=== PATIENT | male | born 1935 | race Caucasian/White ===

== ENCOUNTER 2024-11-19 07:41 | Emergency (ER) | payer MEDICARE, OTHER, SELFPAY ==
[2024-11-19 07:51] VITALS: BP 136/80; BP 137/73; PULSE 61; PULSE 65; RESP 18; TEMP 36.1; O2SAT 98; O2SAT 99; BMI 33.8
--- NOTE | 2024-11-19 07:58 | PC.NURSE ---
very small wound right foot. bleeding controlled now w/o dressing.
--- OUTSIDE RECORDS SUMMARY | 2024-11-19 08:40 | XMS_ITS ---
Author Name [facility] Organization Unknown History of Medication Use Medication Directions Dispensed Refills Start Date End Date Stat losartan (COZAAR) tablet 25 mg Take 0.5 tablets (12.5 mg total) by mouth. 06/06/2024 active celecoxib (CeleBREX) 200 MG capsule Take 1 capsule (200 mg total) by mouth daily. 06/06/2024 active furosemide (LASIX) 40 MG tablet TAKE 1 TABLET BY MOUTH DAILY, MAY TAKE AN EXTRA 1/2 TAB NEEDED FOR LEG SWELLING 06/06/2024 active spironolactone (ALDACTONE) tablet 25 mg Take 0.5 tablets (12.5 mg total) by mouth daily. 06/06/2024 active acetaminophen (TYLENOL EXTRA STRENGTH) 500 MG tablet Take 1 tablet (500 mg total) by mouth every 8 (eight) hours as needed. 06/06/2024 active Xarelto 20 MG TABS tablet Take 1 tablet (20 mg total) by mouth daily. 06/06/2024 active carvedilol (COREG) 12.5 MG tablet Take 1 tablet (12.5 mg total) by mouth 2 (two) times a day. 06/06/2024 active atorvastatin (LIPITOR) tablet 20 mg Take 1 tablet (20 mg total) by mouth daily. 06/06/2024 active Problems Problem Status Onset Date Problem Type Date of Resolution Source Ataxia active EncounterDiagnosisAct CTTHNEMG Gait abnormality active EncounterDiagnosisAct CTTHNEMG Vitamin D deficiency, unspecified active EncounterDiagnosisAct CTTHNE MG Dizziness active EncounterDiagnosisAct CTTHNEMG
--- NOTE | 2024-11-19 09:06 | ED_ITS ---
HPI - Wound/Laceration General Chief Complaint: Wound/Laceration Stated Complaint: FOOT LAC Time Seen by Provider: 11/19/24 09:01 Source: patient, family and RN notes reviewed Mode of arrival: ambulatory Limitations: no limitations History of Present Illness ED Provider: Josefina Craig PA-C HPI narrative: 88 y/o M, hx of afib on lor who presents to the ER via EMS due to bleeding varicose vein. Pt reports that while he was putting on his sock he accidentally knicked a scab on his right foot. He states that the area started to bleed. EMS arrived to scene and applied pressure. he is feeling well, no current complaints. No dizziness, lightheadedness, chest pain or SOB. He states that the area bled last week as well. No other complaints or concerns at this time. Onset (ago): minute(s) Extremity Location: right: foot Context: accidental Associated symptoms: none Related Data Allergies Allergy/AdvReac Type Severity Reaction Status Date / Time No Known Allergies Allergy Verified 11/19/24 07:53 Review of Systems 2 Review of Systems: Yes all other systems are reviewed and are negative [facility] Social History Social History Advance Directives: Yes Advance Directives Information Provided: Yes Advance Directives on File: No Physical Exam 2 Vital Signs: Vital Signs: Last Vital Signs Temp 97.0 F 11/19/24 10:43 Pulse 61 11/19/24 10:43 Resp 18 11/19/24 10:43 BP 137/73 11/19/24 10:43 Pulse Ox 99 11/19/24 10:43 O2 Del Method Room Air 11/19/24 10:43 BMI result Body Mass Index 33.8 Const: Other: General: Awake, alert, and oriented X3. No acute distress. HEENT: Normal inspection CVS: Normal heart rate and rhythm. Pulses normal. Respiratory: No respiratory distress Skin: R foot dorsal aspect there is a punctate varicosity noted, no active bleeding. Right foot with dried blood in between digits. No surrounding erythema or warmth. Extremities: Normal to inspection Neuro: Oriented X 3. No motor deficit. No sensory deficit. Medical Decision Making Medical Decision Making MDM Narrative: 88 y/o M who presents to the ER due to bleeding varicosity. Area is no longer bleeding. Basic labs were performed to ensure no significant blood loss, H&H stable. He is no longer bleeding, dermabond applied to wound. He has adhesive allergies therefor steri strips were deferred. Given strict return precautions, He has f.u with a vascular doctor next month and also has a PCP appointment today for follow up. Stable for d.c Differential Diagnosis Differential Diagnoses: The differential diagnosis associated with the presentation includes abrasion, bleeding varicose vein, cellulitis, laceration Lab Data MDM Lab Attestation statement: I reviewed the patient's lab results. H&H revealing normocytic anemia, H&H 11.1/32.9, no previous for comparison. CHEM with no significant electrolyte derangements. 11/19/24 09:46 11/19/24 09:46 Labs: Lab Results 11/19/24 Range/Units 09:46 WBC 4.1 L (4.8-10.8) X10*3/uL RBC 3.33 L (4.60-5.80) X10*6/uL Hgb 11.1 L (14.0-18.0) g/dl Hct 32.9 L (42.0-52.0) % MCV 98.8 H (80.0-98.0) fL MCH 33.3 H (27.0-33.0) pg MCHC 33.7 (31.0-36.0) g/dl RDW 14.1 (11.0-16.0) % Plt Count 138 L (160-400) X10*3/uL MPV 9.8 (9.4-12.4) fL Immature Gran % (Auto) 0.2 (0.0-0.4) % Neut % (Auto) 55.1 (45-73) % Lymph % (Auto) 30.2 (20-40) % [place] % (Auto) 12.8 H (2-11) % Eos % (Auto) 1.2 (0-4) % Baso % (Auto) 0.5 (0-2) % Lymph # (Auto) 1.3 (1.2-4.9) X10*3/uL [place] # (Auto) 0.5 (0.1-1.2) X10*3/uL Eos # (Auto) 0.1 (0.0-0.4) X10*3/uL Baso # (Auto) 0.0 (0.0-0.2) X10*3/uL Abs Immat Gran (auto) 0.01 (0.00-0.03) X10*3/uL Absolute Neuts (auto) 2.3 (2.0-8.3) x10*3/uL Absolute Nucleated RBC 0.000 (0.0-0.012) X10*3/uL Nucleated RBC % (auto) 0.0 (0.0-0.2) /100WBC PT 25.7 H (10.9-12.4) SEC INR 2.2 H (0.9-1.1) APTT 40.2 H (26.0-36.8) SEC Sodium 143 (135-145) mmol/L Potassium 4.0 (3.3-5.1) mmol/L Chloride 104 (96-108) mmol/L Carbon Dioxide 30 H (22-29) mmol/L Anion Gap 13 (12-20) BUN 17 H (9-16) mg/dL Creatinine 0.85 (0.5-1.4) mg/dL Estim Creat Clear Calc 84.8 Estimated GFR > 60 Random Glucose 115 (60-115) mg/dL Calcium 8.6 (8.4-10.2) mg/dL Total Bilirubin 1.1 H (0.0-1.0) mg/dL AST 27 (5-37) U/L ALT 16 (0-40) U/L Alkaline Phosphatase 68 (39-117) U/L Total Protein 6.2 L (6.5-8.0) g/dL Albumin 3.7 (3.5-5.0) g/dL Discharge Plan Discharge Clinical Impression: Bleeding from varicose vein Patient Disposition: Home, Self-Care Instructions: Peripheral Vascular Disease (ED) Additional Instructions: You were seen in the emergency department due to a bleeding varicose vein. We cleansed this, as well as applied skin glue to the area. Please keep wound clean and dry. If any new or worsening symptoms occur including but not limited to increased redness, swelling, please seek emergent care. Follow-up with the primary care physician. We did draw your blood prior to your arrival, the results did not returned, I will call your daughter, Vanessa if you need to return. Interventions: ED Discharge Assessment Last Done: 11/19/24 10:43 Discharge Date/Time: 12/27/24 10:44 Print Language: Bulgarian
[2024-11-19 09:50] LABS: Basophils Percent Auto 0.5 % (0-2); Eosinophils Absolute Auto 0.1 X10*3/uL (0.0-0.4); Eosinophils Percent Auto 1.2 % (0-4); Hematocrit 32.9 % (42.0-52.0); Hemoglobin 11.1 g/dl (14.0-18.0); Imm Gran Abs Auto 0.01 X10*3/uL (0.00-0.03); Imm Gran Pct Auto 0.2 % (0.0-0.4); Lymphocytes Absolute Auto 1.3 X10*3/uL (1.2-4.9); Lymphocytes Percent Auto 30.2 % (20-40); MANUAL DIFF FLAG NO; Mean Corpuscular HGB Conc 33.7 g/dl (31.0-36.0); Mean Corpuscular Hemoglobin 33.3 pg (27.0-33.0); Mean Corpuscular Volume 98.8 fL (80.0-98.0); Mean Platelet Volume 9.8 fL (9.4-12.4); Monocytes Absolute Auto 0.5 X10*3/uL (0.1-1.2); Monocytes Percent Auto 12.8 % (2-11); Neutrophils Absolute Auto 2.3 x10*3/uL (2.0-8.3); Neutrophils Percent Auto 55.1 % (45-73); Platelet Count 138 X10*3/uL (160-400); Red Blood Count 3.33 X10*6/uL (4.60-5.80); Red Cell Distribution Width 14.1 % (11.0-16.0); White Blood Count 4.1 X10*3/uL (4.8-10.8)
[2024-11-19 09:57] LABS: INTERNATIONAL NORM RATIO 2.2 (0.9-1.1); Prothrombin Time 25.7 SEC (10.9-12.4)
[2024-11-19 10:00] LABS: Partial Thromboplastin Time 40.2 SEC (26.0-36.8)
[2024-11-19 10:04] LABS: Alanine Aminotransferase 16 U/L (0-40); Albumin Level 3.7 g/dL (3.5-5.0); Alkaline Phosphatase 68 U/L (39-117); Anion Gap 13 (12-20); Aspartate Amino Transferase 27 U/L (5-37); Bilirubin Total 1.1 mg/dL (0.0-1.0); Blood Urea Nitrogen 17 mg/dL (9-16); Calcium 8.6 mg/dL (8.4-10.2); Carbon Dioxide 30 mmol/L (22-29); Chloride 104 mmol/L (96-108); Creatinine Clr Calc Pharmacy 84.8; Estimated Glomerular Filt Rate > 60; Glucose Random 115 mg/dL (60-115); Sodium 143 mmol/L (135-145); Total Protein 6.2 g/dL (6.5-8.0)
[2024-11-19 10:43] VITALS: BP 137/73; PULSE 61; RESP 18; TEMP 36.1; O2SAT 99
== END 2024-11-19 10:44 | disposition home or self-care (01) ==
PROVIDERS: Physician Assistant Medical; Emergency Provider Emergency Medicine
DX: I83.892 Varicose veins of left lower extremity with other complications (principal); D64.9 Anemia, unspecified; I48.91 Unspecified atrial fibrillation; Z79.01 Long term (current) use of anticoagulants
CPT/HCPCS: 36415; 80053; 85025; 85610; 85730; 99282; 99283